=== PATIENT | female | born 1995 | race African-American/Black ===

== ENCOUNTER 2017-07-24 19:51 | Emergency (ER) | payer MEDICAID ==
[~2017-07-24] VITALS: Ht 170.2 cm; Wt 95.8 kg
[2017-07-24 21:30] LABS: MICROSCOPIC NOT IND
[2017-07-24 21:40] LABS: CULTURE INDICATED? NO
[2017-07-24 21:49] LABS: BASOPHILS # (AUTO) 0.04 x10^3/uL (0-0.1); BASOPHILS % (AUTO) 0 % (0-1); EOSINOPHILS # (AUTO) 0.17 x10^3/uL (0-0.4); EOSINOPHILS % (AUTO) 2 % (1-7); LYMPHOCYTES # (AUTO) 2.81 x10^3/uL (1-3.4); LYMPHOCYTES % (AUTO) 27 % (22-44); MD NO; MEAN CORPUSCULAR HEMOGLOBIN 28.3 pg (27.0-34.8); MEAN CORPUSCULAR HGB CONC 33.2 g/dL (32.4-35.8); MEAN CORPUSCULAR VOLUME 85.1 fL (80-100); MEAN PLATELET VOLUME 8.8 fL (7.4-10.4); MONOCYTES % (AUTO) 5 % (2-9); NEUTROPHILS # (AUTO) 6.76 x10^3/uL (1.8-6.8); NEUTROPHILS % (AUTO) 66 % (42-75); PLATELET COUNT 291 x10^3/uL (130-400); RED BLOOD COUNT 4.67 x10^6/uL (3.82-5.3); RED CELL DISTRIBUTION WIDTH 13.4 % (9.6-15.2)
[2017-07-24 22:01] LABS: ALBUMIN 3.4 g/dL (3.4-5.0); ANION GAP 7 mmol/L (5-15); CALCIUM 8.4 mg/dL (8.5-10.1); CHLORIDE 109 mmol/L (98-107)
[2017-07-24 22:06] LABS: ALANINE AMINOTRANSFERASE 36 U/L (12-78); ALKALINE PHOSPHATASE 56 U/L (45-117); BILIRUBIN,TOTAL 0.2 mg/dL (0.2-1.0); CREATININE 0.91 mg/dL (0.55-1.02); TOTAL PROTEIN 7.2 g/dL (6.4-8.2)
[2017-07-24 22:50] VITALS: BP 130/78
== END 2017-07-24 22:42 ==
LOC: ED 22:20
DX: Z32.01 Encounter for pregnancy test, result positive (principal)
CPT/HCPCS: 36415; 76856; 80053; 81003; 84702; 85025; 93005; 99285